=== PATIENT | female | born 1990 | race Caucasian/White ===

== ENCOUNTER 2016-12-15 10:19 | Emergency (ER) | payer OTHER ==
[2016-12-15 14:11] LABS: HEMOGLOBIN 14.9 gm/dl (12.3-15.3); RED BLOOD COUNT 5.17 M/UL (4.00-5.10); WHITE BLOOD COUNT 9.8 K/UL (4.5-11.0)
[2016-12-15 14:30] LABS: BUN/CREATININE RATIO 13 (0-10)
== END 2016-12-15 15:40 | disposition home or self-care (01) ==
LOC: ER1 10:19
PROVIDERS: Physician Assistant
DX: S16.1XXA Strain of muscle, fascia and tendon at neck level, initial encounter (principal); T14.8 Other injury of unspecified body region; R10.30 Lower abdominal pain, unspecified; M79.631 Pain in right forearm; V43.52XA Car driver injured in collision with other type car in traffic accident, initial encounter; Y93.89 Activity, other specified; Y92.410 Unspecified street and highway as the place of occurrence of the external cause
CPT/HCPCS: 36415; 71010; 72125; 73090; 80053; 81001; 82150; 83690; 84703; 85025; 99284; J7050; Q9962